=== PATIENT | female | born 1980 | race Caucasian/White ===

== ENCOUNTER 2016-09-02 09:33 | Emergency (ER) | payer OTHER ==
[~2016-09-02 09:33] MED LIST: EZFE 200200 MG PO; MAXALT10 MG PO; NEXIUM40 MG PO; OMEPRAZOLE40 MG PO; PEPCID40 MG PO; ZANTAC150 MG PO
[2016-09-02 11:15] LABS: BASOPHILS 1.1 % (0-2); EOSINOPHILS 2.6 % (0-7); HEMATOCRIT 39.9 % (36.0-48.0); HEMOGLOBIN 13.1 g/dL (12-16); IMMATURE GRANULOCYTES 0.1 % (0-5); LYMPHOCYTES 22.3 % (15-50); MCH 31.3 pg (26.0-34.0); MCHC 32.8 g/dL (31.0-37.0); MCV 95.2 fL (80.0-100.0); MEAN PLATELET VOLUME 9.6 fL (7.4-10.4); MONOCYTES 6.4 % (2-11); NEUTROPHILS 67.5 % (40-80); PLATELET COUNT 252 10x3/uL (130-400); RBC 4.19 10x6/uL (4.00-5.40); RDW 12.8 % (11.5-14.5); WBC 7.4 10x3/uL (4.8-10.8)
[2016-09-02 11:32] LABS: ALBUMIN 3.5 g/dL (3.4-5.0); ALKALINE PHOSPHATASE 54 U/L (46-116); ALT (SGPT) 18 U/L (10-68); BILIRUBIN - TOTAL 1.09 mg/dL (0.2-1.3); CALC OSMOLALITY 277 mosm/kg (275-300); CALCIUM 8.2 mg/dL (8.5-10.1); CARBON DIOXIDE 26.6 mmol/L (21.0-32.0); CHLORIDE - SERUM 108 mmol/L (98-107); CREATININE - SERUM 0.6 mg/dL (0.6-1.3); GLUCOSE 95 mg/dL (74-106); POTASSIUM - SERUM 3.8 mmol/L (3.5-5.1); PROTEIN - SERUM 6.7 g/dL (6.4-8.2); SODIUM 141 mmol/L (136-145); UREA NITROGEN 4 mg/dL (7-18); eGFR NON AFRICAN AMERICAN > 90 mL/min (90-120)
[2016-09-02 11:41] LABS: THYROID STIMULATING HORMONE 1.49 uIU/mL (0.36-3.74)
== END 2016-09-02 13:25 | disposition home or self-care (01) ==
LOC: D.ER 09:33
PROVIDERS: Physician Assistant
DX: F41.9 Anxiety disorder, unspecified (principal); E89.0 Postprocedural hypothyroidism; K21.9 Gastro-esophageal reflux disease without esophagitis; M51.26 Other intervertebral disc displacement, lumbar region; F17.200 Nicotine dependence, unspecified, uncomplicated

== ENCOUNTER 2016-09-20 00:21 | Emergency (ER) | payer OTHER ==
[2015-09-26 12:52] VITALS: BMI 21.9
[2016-09-20 01:37] LABS: BASOPHILS 1.5 % (0-2); EOSINOPHILS 4.7 % (0-7); HEMATOCRIT 39.6 % (36.0-48.0); HEMOGLOBIN 12.8 g/dL (12-16); IMMATURE GRANULOCYTES 0.1 % (0-5); LYMPHOCYTES 20.6 % (15-50); MCH 30.9 pg (26.0-34.0); MCHC 32.3 g/dL (31.0-37.0); MCV 95.7 fL (80.0-100.0); MEAN PLATELET VOLUME 9.6 fL (7.4-10.4); MONOCYTES 6.8 % (2-11); NEUTROPHILS 66.3 % (40-80); PLATELET COUNT 281 10x3/uL (130-400); RBC 4.14 10x6/uL (4.00-5.40); RDW 12.7 % (11.5-14.5); WBC 9.1 10x3/uL (4.8-10.8)
[2016-09-20 01:53] LABS: ALBUMIN 3.6 g/dL (3.4-5.0); ALKALINE PHOSPHATASE 60 U/L (46-116); ALT (SGPT) 16 U/L (10-68); BILIRUBIN - TOTAL 0.64 mg/dL (0.2-1.3); CALC OSMOLALITY 278 mosm/kg (275-300); CALCIUM 8.4 mg/dL (8.5-10.1); CARBON DIOXIDE 30.2 mmol/L (21.0-32.0); CHLORIDE - SERUM 103 mmol/L (98-107); CREATININE - SERUM 0.8 mg/dL (0.6-1.3); GLUCOSE 80 mg/dL (74-106); POTASSIUM - SERUM 3.8 mmol/L (3.5-5.1); PROTEIN - SERUM 6.9 g/dL (6.4-8.2); SODIUM 140 mmol/L (136-145); UREA NITROGEN 16 mg/dL (7-18); eGFR NON AFRICAN AMERICAN 85 mL/min (90-120)
== END 2016-09-20 02:16 | disposition home or self-care (01) ==
LOC: D.ER 00:21
PROVIDERS: Family Medicine
DX: E83.51 Hypocalcemia (principal); K21.9 Gastro-esophageal reflux disease without esophagitis; M51.26 Other intervertebral disc displacement, lumbar region

== ENCOUNTER 2016-11-19 23:57 | Emergency (ER) | payer OTHER ==
[2015-09-26 12:52] VITALS: BMI 21.9
== END 2016-11-20 01:37 | disposition home or self-care (01) ==
LOC: D.ER 23:57
DX: T36.4X5A Adverse effect of tetracyclines, initial encounter (principal); Y92.89 Other specified places as the place of occurrence of the external cause; K21.9 Gastro-esophageal reflux disease without esophagitis; F17.200 Nicotine dependence, unspecified, uncomplicated

== ENCOUNTER 2016-12-02 16:54 | Emergency (ER) | payer OTHER ==
[2015-09-26 12:52] VITALS: BMI 21.9
[2016-12-02 19:58] LABS: BASOPHILS 0.8 % (0-2); HEMATOCRIT 41.7 % (36.0-48.0); HEMOGLOBIN 14.1 g/dL (12-16); IMMATURE GRANULOCYTES 0.2 % (0-5); LYMPHOCYTES 24.8 % (15-50); MCH 31.8 pg (26.0-34.0); MCHC 33.8 g/dL (31.0-37.0); MCV 94.1 fL (80.0-100.0); MEAN PLATELET VOLUME 9.6 fL (7.4-10.4); MONOCYTES 9.7 % (2-11); NEUTROPHILS 62.5 % (40-80); PLATELET COUNT 337 10x3/uL (130-400); RBC 4.43 10x6/uL (4.00-5.40); RDW 12.7 % (11.5-14.5); WBC 10.1 10x3/uL (4.8-10.8)
[2016-12-02 20:07] LABS: CALC OSMOLALITY 277 mosm/kg (275-300); CARBON DIOXIDE 27.2 mmol/L (21.0-32.0); CHLORIDE - SERUM 101 mmol/L (98-107); CREATININE - SERUM 0.5 mg/dL (0.6-1.3); GLUCOSE 89 mg/dL (74-106); POTASSIUM - SERUM 3.7 mmol/L (3.5-5.1); SODIUM 140 mmol/L (136-145); UREA NITROGEN 13 mg/dL (7-18); eGFR NON AFRICAN AMERICAN > 90 mL/min (90-120)
[2016-12-02 20:24] LABS: APPEARANCE CLEAR (CLEAR); BILIRUBIN NEGATIVE (NEGATIVE); COLOR YELLOW (YELLOW); GLUCOSE NEGATIVE (NEGATIVE); HCG URINE NEGATIVE (NEGATIVE); KETONE NEGATIVE (NEGATIVE); LEUKOCYTE ESTERASE NEGATIVE (NEGATIVE); NITRITE NEGATIVE (NEGATIVE); PROTEIN NEGATIVE (NEGATIVE); SPECIFIC GRAVITY 1.015 (1.005-1.020); UROBILINOGEN NORMAL (NORMAL)
== END 2016-12-02 22:31 | disposition home or self-care (01) ==
LOC: D.ER 16:54
PROVIDERS: Nurse Practitioner Acute Care
DX: R07.0 Pain in throat (principal); R13.10 Dysphagia, unspecified; F17.200 Nicotine dependence, unspecified, uncomplicated; Y04.2XXA Assault by strike against or bumped into by another person, initial encounter; Y93.89 Activity, other specified; Y92.89 Other specified places as the place of occurrence of the external cause; K21.9 Gastro-esophageal reflux disease without esophagitis

== ENCOUNTER 2017-01-21 12:50 | Day surgery (SDC) | payer OTHER | END 2017-01-21 17:30 | disposition home or self-care (01) | LOC: D.OPS 12:50 | DX: R10.13 Epigastric pain (principal); R11.0 Nausea; K21.0 Gastro-esophageal reflux disease with esophagitis; K44.9 Diaphragmatic hernia without obstruction or gangrene; K31.7 Polyp of stomach and duodenum; Z01.812 Encounter for preprocedural laboratory examination; F17.200 Nicotine dependence, unspecified, uncomplicated ==

== ENCOUNTER 2017-04-19 00:16 | Emergency (ER) | payer OTHER ==
[2017-01-21 13:54] VITALS: BMI 19.6
[~2017-04-19 00:16] MED LIST changes: +ATIVAN1 MG PO; +LEVOTHYROXINE50 MCG PO
[2017-04-19 02:00] LABS: BASOPHILS 0.9 % (0-2); HEMATOCRIT 40.5 % (36.0-48.0); HEMOGLOBIN 13.1 g/dL (12-16); IMMATURE GRANULOCYTES 0.1 % (0-5); LYMPHOCYTES 30.6 % (15-50); MCH 30.3 pg (26.0-34.0); MCHC 32.3 g/dL (31.0-37.0); MCV 93.5 fL (80.0-100.0); MEAN PLATELET VOLUME 9.5 fL (7.4-10.4); MONOCYTES 8.8 % (2-11); NEUTROPHILS 56.6 % (40-80); PLATELET COUNT 305 10x3/uL (130-400); RBC 4.33 10x6/uL (4.00-5.40); RDW 13.8 % (11.5-14.5); WBC 7.9 10x3/uL (4.8-10.8)
[2017-04-19 02:07] LABS: ALBUMIN 3.6 g/dL (3.4-5.0); ALKALINE PHOSPHATASE 61 U/L (46-116); ALT (SGPT) 13 U/L (10-68); BILIRUBIN - TOTAL 0.67 mg/dL (0.2-1.3); CALC OSMOLALITY 279 mosm/kg (275-300); CALCIUM 8.7 mg/dL (8.5-10.1); CARBON DIOXIDE 29.7 mmol/L (21.0-32.0); CHLORIDE - SERUM 105 mmol/L (98-107); CREATININE - SERUM 0.8 mg/dL (0.6-1.3); POTASSIUM - SERUM 3.5 mmol/L (3.5-5.1); PROTEIN - SERUM 7.2 g/dL (6.4-8.2); SODIUM 142 mmol/L (136-145); UREA NITROGEN 11 mg/dL (7-18); eGFR NON AFRICAN AMERICAN 85 mL/min (90-120)
[2017-04-19 02:08] LABS: GLUCOSE 67 mg/dL (74-106)
== END 2017-04-19 02:30 | disposition home or self-care (01) ==
LOC: D.ER 00:16
PROVIDERS: Emergency Medicine
DX: R10.9 Unspecified abdominal pain (principal); K21.9 Gastro-esophageal reflux disease without esophagitis; F17.200 Nicotine dependence, unspecified, uncomplicated

== ENCOUNTER → 2017-07-19 12:25 | Outpatient (CLI) | payer OTHER ==
[2017-01-21 13:54] VITALS: BMI 19.6
[~2017-07-19 12:25] MED LIST changes: +BIOTIN5 MG PO; +GLUCOSAMINE & C1 CAP PO; +HYDROCODON-ACE1 EAC7 PO; +MULTIPLE VITAMI1 TA1 PO
== END | disposition home or self-care (01) ==
LOC: D.NM 12:25
DX: R10.9 Unspecified abdominal pain (principal)

== ENCOUNTER 2017-08-02 08:57 | Day surgery (SDC) | payer OTHER ==
[~2017-08-02] VITALS: Ht 170.2 cm; Wt 59.4 kg
[~2017-08-02 08:57] MED LIST changes: -HYDROCODON-ACE1 EAC7 PO
[2017-08-02 09:32] LABS: HCG URINE NEGATIVE (NEGATIVE)
[2017-08-02 09:33] VITALS: BP 103/50; Ht 170.2 cm; Wt 59.4 kg
[2017-08-02 10:38] LABS: HEMOGLOBIN 11.2 g/dL (12-16); MCH 29.1 pg (26.0-34.0); MCV 90.9 fL (80.0-100.0); MEAN PLATELET VOLUME 9.7 fL (7.4-10.4); RBC 3.85 10x6/uL (4.00-5.40); RDW 13.5 % (11.5-14.5); WBC 6.2 10x3/uL (4.8-10.8)
[2017-08-02] MEDS ORDERED: HYDROCODON-ACE1 EAC7 PO (11:42)
== END 2017-08-02 15:25 | disposition home or self-care (01) ==
LOC: D.OPS 08:57 → D.PAN 09:00 → D.OPS 15:25
PROVIDERS: Anesthesiology; Surgery
DX: K80.20 Calculus of gallbladder without cholecystitis without obstruction (principal); K21.9 Gastro-esophageal reflux disease without esophagitis; E03.9 Hypothyroidism, unspecified; Z01.812 Encounter for preprocedural laboratory examination

== ENCOUNTER 2017-09-04 20:12 | Emergency (ER) | payer OTHER ==
[2017-08-02 09:33] VITALS: BMI 23.5
[~2017-09-04 20:12] MED LIST changes: +HYDROCODON-ACE1 EAC7 PO
[2017-09-04 20:55] LABS: APPEARANCE HAZY (CLEAR); BILIRUBIN NEGATIVE (NEGATIVE); COLOR YELLOW (YELLOW); GLUCOSE NEGATIVE (NEGATIVE); KETONE NEGATIVE (NEGATIVE); NITRITE NEGATIVE (NEGATIVE); PROTEIN NEGATIVE (NEGATIVE); SPECIFIC GRAVITY 1.015 (1.005-1.020); UROBILINOGEN NORMAL (NORMAL)
[2017-09-04 20:57] LABS: BACTERIA MODERATE /hpf (NONE SEEN); EPITHELIAL CELLS 0-5 /hpf (0-5); RED CELLS - URINE 0-5 /hpf (0-5); WHITE CELLS - URINE 0-5 /hpf (0-5)
[2017-09-04 21:02] LABS: HCG URINE NEGATIVE (NEGATIVE)
[2017-09-04 21:15] LABS: BASOPHILS 1.4 % (0-2); HEMOGLOBIN 12.2 g/dL (12-16); IMMATURE GRANULOCYTES 0.1 % (0-5); LYMPHOCYTES 29.3 % (15-50); MCH 29.2 pg (26.0-34.0); MCHC 32.1 g/dL (31.0-37.0); MCV 90.9 fL (80.0-100.0); MEAN PLATELET VOLUME 9.6 fL (7.4-10.4); MONOCYTES 9.2 % (2-11); PLATELET COUNT 273 10x3/uL (130-400); RBC 4.18 10x6/uL (4.00-5.40); RDW 14.5 % (11.5-14.5); WBC 7.1 10x3/uL (4.8-10.8)
[2017-09-04 21:38] LABS: ALBUMIN 3.5 g/dL (3.4-5.0); ALKALINE PHOSPHATASE 62 U/L (46-116); ALT (SGPT) 16 U/L (10-68); AMYLASE - SERUM 90 U/L (25-115); BILIRUBIN - TOTAL 0.75 mg/dL (0.2-1.3); CALC OSMOLALITY 277 mosm/kg (275-300); CALCIUM 8.2 mg/dL (8.5-10.1); CARBON DIOXIDE 26.7 mmol/L (21.0-32.0); CHLORIDE - SERUM 105 mmol/L (98-107); CREATININE - SERUM 0.7 mg/dL (0.6-1.3); LIPASE 199 U/L (73-393); POTASSIUM - SERUM 3.6 mmol/L (3.5-5.1); PROTEIN - SERUM 7.1 g/dL (6.4-8.2); SODIUM 140 mmol/L (136-145); UREA NITROGEN 16 mg/dL (7-18); eGFR NON AFRICAN AMERICAN > 90 mL/min (90-120)
[2017-09-04 21:40] LABS: GLUCOSE 66 mg/dL (74-106)
== END 2017-09-05 01:30 | disposition home or self-care (01) ==
LOC: D.ER 20:12
PROVIDERS: Family Medicine
DX: R11.2 Nausea with vomiting, unspecified (principal); R10.32 Left lower quadrant pain; R10.31 Right lower quadrant pain; F17.200 Nicotine dependence, unspecified, uncomplicated

== ENCOUNTER → 2018-03-02 08:01 | Outpatient (CLI) | payer OTHER ==
[2017-08-02 09:33] VITALS: BMI 23.5
== END | disposition home or self-care (01) ==
LOC: D.MRI 02-28 11:30
DX: M54.16 Radiculopathy, lumbar region (principal)

== ENCOUNTER 2018-11-15 12:40 | Emergency (ER) | payer SELFPAY ==
[~2018-11-15] VITALS: Ht 170.2 cm; Wt 64.5 kg
[2018-11-15 12:49] VITALS: Ht 170.2 cm; Wt 64.5 kg
[2018-11-15] MEDS ORDERED: STERAPRED DS 1210 MG PO (13:14)
[2018-11-15] MEDS ORDERED: MEDROL DOSE PACK4 MG PO ×2 (13:14→13:15)
[2018-11-15] MEDS ORDERED: ATARAX 25 MG TA25 MG PO (13:15)
[2018-11-15 14:39] VITALS: BP 122/68
== END 2018-11-15 14:40 | disposition home or self-care (01) ==
LOC: D.ER 12:40
DX: L20.9 Atopic dermatitis, unspecified (principal)